=== PATIENT | female | born 1940 | race Caucasian/White ===

== ENCOUNTER → 2020-07-16 17:50 | Outpatient (CLI) | payer MEDICARE, SELFPAY | PROVIDERS: PCP Family Medicine; Referring Provider Physician Assistant; Visit Provider Physician Assistant | DX: Z20.828 Contact with and (suspected) exposure to other viral communicable diseases (principal) | CPT/HCPCS: 87635; C9803; U0003 ==

== ENCOUNTER → 2021-04-11 08:02 | Outpatient (CLI) | payer MEDICARE, SELFPAY ==
--- NOTE | 2021-04-11 08:02 | MRI_ITS ---
STUDY: MRI LUMBAR SPINE WITHOUT CONTRAST REASON FOR EXAM: Female, 80 years old. Low Back Pain, Lumbar Radiculopathy, Bilateral TECHNIQUE: Standardized fat and water weighted pulse sequences were obtained in the sagittal and axial planes. COMPARISON: None FINDINGS: A large 7.8 cm simple benign cyst of the upper pole of the right kidney is present. There is appearance of heterogeneity in the visualized aspects of the right kidney which should be further assessed with renal ultrasound as there is obvious motion artifact through this region, but complete evaluation and exclusion of a malignancy is recommended. Several small cysts are seen in the left kidney. Mild wedging of the T12 vertebral body noted which could be physiologic or related to an old and mild compression deformity. Normal lumbar lordosis. There is a dextroscoliosis of the lumbar spine. Normal conus medullaris that terminates at the L1 level. L1-2: Normal endplates. The disc is desiccated. Normal disc height and morphology. Normal bilateral facet joints. Normal central canal and bilateral lateral recesses. Normal bilateral intervertebral neural foramina. L2-3: Moderate to severe disc space narrowing associated with an asymmetric disc osteophyte complex associated with scoliosis. Minimal retrolisthesis of L2 on L3 of 2 mm. Normal bilateral facet joints. Normal central canal and bilateral lateral recesses. Normal bilateral intervertebral neural foramina. L3-4: Moderate to severe left side disc space narrowing and asymmetric diffuse disc osteophyte complex due to scoliosis. Mild hypertrophy of the left facet joint noted. Minimal retrolisthesis of L3 on L4 of less than 2 mm. Normal central canal and bilateral lateral recesses. Normal bilateral intervertebral neural foramina. L4-5: Moderate disc space narrowing with a diffuse disc osteophyte complex. Mild hypertrophy of the left facet joint. Normal central canal and bilateral lateral recesses. Moderate right foraminal stenosis without nerve root compression. Normal left neural foramen. L5-S1: Normal endplates. Normal disc height, hydration and morphology. Normal bilateral facet joints. Normal central canal and bilateral lateral recesses. Normal bilateral intervertebral neural foramina. Normal visualized sacral ala. There is moderate paraspinal muscular atrophy. MRI/Spine Lumbar (Routine) IMPRESSION: 1. Multilevel degenerative changes, as described above. 2. There is appearance of heterogeneity in the visualized aspects of the right kidney which should be further assessed with renal ultrasound as there is obvious motion artifact through this region, but complete evaluation and exclusion of a malignancy is recommended. Several small cysts are seen in the left kidney. Electronically Signed: Dennis Arriaga MD at 23:41 EDT , Service support ,
== END ==
PROVIDERS: PCP Family Medicine; Referring Provider Psychiatry & Neurology Neurology; Visit Provider Psychiatry & Neurology Neurology
DX: M54.16 Radiculopathy, lumbar region (principal); M54.41 Lumbago with sciatica, right side; M54.42 Lumbago with sciatica, left side; G89.29 Other chronic pain
CPT/HCPCS: 72148

== ENCOUNTER → 2021-04-18 15:12 | Outpatient (CLI) | payer MEDICARE, SELFPAY ==
--- NOTE | 2021-04-18 15:15 | US_ITS ---
STUDY: RENAL ULTRASOUND - COMPLETE REASON FOR EXAM: Female, 80 years old. possible right renal mass -- right kidney TECHNIQUE: Ultrasound evaluation of the kidneys was performed with real-time and static malloy-scale imaging. COMPARISON: Prior ultrasound 04/28/2011 and lumbar MRI of 04/11/2021 FINDINGS: RIGHT KIDNEY: Normal location of the right kidney, which is normal in size. The right kidney measures 13.7 x 6.5 x 6.5 cm. There is a normal cortex of the right kidney. The renal cortex measures 1.6 cm. 8.3 x 7.8 x 6.1 cm simple cyst upper pole right kidney. There are no right renal calculi. There is no right hydronephrosis. DISTAL RIGHT URETER: There is no demonstrated right ureteral jet. LEFT KIDNEY: Normal location of the left kidney, which is normal in size. The left kidney measures 8.4 x 3.4 x 4.1 cm. There is a normal cortex of the left kidney. The renal cortex measures 0.9 cm. There is no left renal mass or cyst. There are no left renal calculi. There is no left hydronephrosis. DISTAL LEFT URETER: There is no demonstrated left ureteral jet. BLADDER: The distended urinary bladder has a volume of 134 ml.. There is a normal wall thickness of the distended urinary bladder. There is no demonstrated mass within the urinary bladder. There are no demonstrated bladder calculi. US/Kidney and Bladder IMPRESSION: 8.3 x 7.8 x 6.1 cm simple cyst of the right kidney not substantially changed from prior ultrasound of 03/29/2011. Negative for solid renal mass. No other acute renal findings or changes. Right kidney measurement exaggerated by the presence of the upper pole cyst. Left kidney measurements suggest mild atrophy. Electronically Signed: Kaycee Butts MD at 16:11 EDT , Service support ,
== END ==
PROVIDERS: PCP Family Medicine; Referring Provider Psychiatry & Neurology Neurology; Visit Provider Psychiatry & Neurology Neurology
DX: N28.1 Cyst of kidney, acquired (principal)
CPT/HCPCS: 76770

== ENCOUNTER → 2024-01-17 | Outpatient (CLI) | payer MEDICARE, SELFPAY ==
--- NOTE | 2024-01-17 14:08 | RAD_ITS ---
INDICATION: Low back pain with left lower extremity radicular complaints EXAMINATION/TECHNIQUE: X-RAY - XR Spine Lumbar 2 or 3 Views COMPARISON: No relevant prior comparison study available FINDINGS: VERTEBRAE: Preserved vertebral body height. Demineralization of the osseous structures. No spondylolisthesis. Preservation of the normal lumbar lordosis. Mild dextroscoliosis with rotation. DISCS: Multilevel severe disc space narrowing. Endplate spondylosis. INCLUDED ABDOMEN: Included bowel gas pattern is non-obstructive. RAD/Lumbar Spine 2 or 3 Views IMPRESSION: Degenerative changes of the lumbar spine. Electronically Signed: Aryan Victoria MD at 14:35 EDT ,
== END | disposition home or self-care (01) ==
PROVIDERS: PCP Family Medicine; Referring Provider Physician Assistant; Visit Provider Physician Assistant
DX: M54.16 Radiculopathy, lumbar region (principal)
CPT/HCPCS: 72100

== ENCOUNTER → 2024-03-17 | Outpatient (CLI) | payer MEDICARE, SELFPAY ==
--- NOTE | 2024-03-17 11:11 | RAD_ITS ---
INDICATION: NECK PAIN EXAMINATION/TECHNIQUE: X-RAY - XR Spine Cervical 4 or 5 Views COMPARISON: No relevant prior comparison study available FINDINGS: VERTEBRAE: Preserved vertebral body height. No fracture. Possible minimal retrolisthesis of C4 over C5. Preservation of the normal cervical lordosis. No significant facet arthropathy. DISCS: Severe disc space narrowing of C4-C5, C5-C6 and C6-C7. Endplate spondylosis at multiple levels. NECK SOFT TISSUES: No prevertebral soft tissue widening. LUNG APICES: Clear. RAD/Cerv Spine 4 or 5 Views IMPRESSION: Degenerative changes as described above.. Electronically Signed: Aryan Victoria MD at 12:40 EDT ,
--- NOTE | 2024-03-17 11:11 | RAD_ITS ---
HISTORY: SHOULDER PAIN. TECHNIQUE: XR Shoulder Min 2 Views. COMPARISON: None. FINDINGS: BONES : No acute fracture identified. Mineralization unremarkable. JOINTS: No dislocation. Mild degenerative change. SOFT TISSUES: Left lung apex clear. RAD/Shoulder min 2 Views IMPRESSION: No acute fracture or dislocation identified in the left shoulder. Electronically Signed: Dennise Bah MD at 9:47 EDT ,
== END | disposition home or self-care (01) ==
PROVIDERS: PCP Family Medicine; Referring Provider Anesthesiology Pain Medicine; Visit Provider Anesthesiology Pain Medicine
DX: M54.2 Cervicalgia (principal)
CPT/HCPCS: 72050; 73030

== ENCOUNTER → 2024-04-07 | Outpatient (CLI) | payer MEDICARE, SELFPAY ==
--- NOTE | 2024-04-07 10:16 | MRI_ITS ---
EXAM: MR LUMBAR SPINE WITHOUT INTRAVENOUS CONTRAST CLINICAL INDICATION: SPINAL STENOSIS TECHNIQUE: Multiplanar and multisequence MR images of the lumbar spine without intravenous contrast. COMPARISON: MR Lumbar Spine dated 04/11/2021 FINDINGS: VERTEBRAE: Stable dextroscoliosis of the lumbar spine centered at the L3-4 level. Normal lumbar lordosis. No significant loss in vertebral body height. 7.4 cm right renal cyst is again seen. No specific follow-up indicated. SPINAL CORD: Normal. Normal position and signal intensity of the conus medullaris. SOFT TISSUES: Normal. DISCS/SPINAL CANAL/NEURAL FORAMINA: L1-L2: Mild disc space narrowing. Mild disc bulging without spinal or neural foraminal stenosis. L2-L3: Prominent disc space narrowing and vertebral body osteophytosis. No spinal stenosis. Narrowing of the left neural foramen related to facet arthropathy. L3-L4: Prominent disc space narrowing. Mild disc osteophyte complex without significant spinal stenosis. Moderate left and mild right neural foraminal narrowing related to the vertebral body hypertrophy, facet arthropathy and scoliosis. L4-L5: Moderate disc space narrowing. Mild disc bulging without spinal stenosis. Prominent right neural foraminal narrowing related to lateral disc bulging and facet arthropathy. No significant narrowing of the left neural foramen. L5-S1: Intact intervertebral disc. No disc bulging. Facet arthropathy results in mild to moderate narrowing of the right neural foramen. No significant narrowing of the left neural foramen or spinal canal. MRI/Spine Lumbar (Routine) IMPRESSION: 1. 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 2. Neural foraminal narrowing as described related to the scoliosis is patent with diffuse spondylosis. Electronically Signed: Jose Juan Mendoza MD at 15:44 EDT ,
== END | disposition home or self-care (01) ==
PROVIDERS: PCP Family Medicine; Referring Provider Clinical Nurse Specialist Adult Health; Visit Provider Clinical Nurse Specialist Adult Health
DX: M48.061 Spinal stenosis, lumbar region without neurogenic claudication (principal); M51.36 Other intervertebral disc degeneration, lumbar region
CPT/HCPCS: 72148